=== PATIENT | female | born 1965 | race Caucasian/White ===

== ENCOUNTER 2020-09-28 06:13 | Day surgery (SDC) | payer OTHER ==
[2020-09-27 10:15] VITALS: BMI 21.5
[2020-09-28] MEDS ORDERED: BUPIVACAINE HCL/PF 0.25% (2.5MG/ML) 10 ML VIAL ONE (07:14)
[2020-09-28] MEDS ORDERED: LIDOCAINE HCL 2% (20ML MULTI-DOSE VIAL) ONE (07:15)
[2020-09-28] MEDS ORDERED: MIDAZOLAM HCL 2 MG/2 ML SINGLE DOSE VIAL ONE (07:33)
[2020-09-28] MEDS ORDERED: PROPOFOL 20 ML ONE (07:43)
[2020-09-28] MEDS ORDERED: SUCCINYLCHOLINE CHLORIDE 200 MG/10 ML SYRINGE ONE (07:43)
[2020-09-28] MEDS ORDERED: ONDANSETRON 4 MG/2 ML VIAL ONE (08:07)
[2020-09-28] MEDS ORDERED: DEXAMETHASONE SOD PHOSPHATE 4 MG/1 ML VIAL ONE (08:07)
[2020-09-28] MEDS ORDERED: LIDOCAINE HCL 2% (50ML VIAL) INF ONE (08:14)
[2020-09-28 08:54] VITALS: TEMP 97.1
[2020-09-28 09:09] VITALS: BP 154/75; PULSE 73
== END 2020-09-28 09:10 | disposition home or self-care (01) ==
LOC: FASU 06:13
PROVIDERS: ATTEND Orthopaedic Surgery Hand Surgery
PROC: 0JBK0ZZ Excision of Left Hand Subcutaneous Tissue and Fascia, Open Approach (ICD-10-PCS; principal; 2020-09-28 08:14)
DX: C49.12 Malignant neoplasm of connective and soft tissue of left upper limb, including shoulder (principal); R22.32 Localized swelling, mass and lump, left upper limb
CPT/HCPCS: 88305-TC; 88342-TC